=== PATIENT | male | born 1950 | race Caucasian/White ===

== ENCOUNTER → 2016-08-04 | Outpatient (CLI) | payer OTHER ==
[~2016-08-04] MED LIST: ADVIN10/60 INH; AMOX875T PO; ASPI1TAB83 PO; ATOR-24 PO; FINA5TAB4 PO; LOSA100T2 PO; MULT-506 PO; NAPR500T3 PO; OMEP40CA PO; TAMS0.4C38 PO; VNTHFA/IN INH; ZNTT/150 PO
[2016-08-04 12:46] LABS: BASO % 0.3 %; BASO ABS # 0.03 K/uL (0-0.2); COMPLETE YES; HEMATOCRIT 48.4 % (42-52); IG% 0.2 %; LYMPH % 9.9 %; LYMPH ABS # 1.08 K/uL (1.2-3.4); MEAN CELL VOLUME 86.9 fL (80-100); MEAN CORPUSCULAR HGB CONC 34.5 g/dl (32-36); MEAN PLATELET VOLUME 11.2 fL (7.4-10.4); NEUT % 79.6 %; PLATELET COUNT 231 K/uL (130-400); RED BLOOD COUNT 5.57 M/uL (4.7-6.1); WHITE BLOOD COUNT 10.86 K/uL (4.8-10.8)
[2016-08-04 15:07] LABS: ALT/SGPT 32 U/L (12-78); BLOOD UREA NITROGEN 19 mg/dl (7-18); BUN/CREATININE RATIO 17.6 (10-20); CARBON DIOXIDE 29 mmol/L (21-32); CHLORIDE 105 mmol/L (98-107); CHOLESTEROL 188 mg/dl (0-200); GLUCOSE 108 mg/dl (70-99); POTASSIUM 4.1 mmol/L (3.5-5.1); SODIUM 140 mmol/L (136-145); TRIGLYCERIDES 110 mg/dl (0-150); VERY LOW DENSITY LIPOPROT CALC 22 mg/dl
[2016-08-04 15:11] LABS: ALB/GLOB RATIO 1.3 (0.9-2); ALKALINE PHOSPHATASE 105 U/L (45-117); AST/SGOT 24 U/L (15-37); CHOLESTEROL/HDL RATIO 3.7; HDL CHOLESTEROL 51 mg/dl; LDL CHOLESTEROL CALCULATED 115 mg/dl; PROSTATE SPECIFIC ANTIGEN 0.633 ng/ml (0.000-4.000)
[2016-08-04 16:57] LABS: CALCIUM 9.6 mg/dl (8.5-10.1)
--- NOTE | 2016-08-10 11:41 | CODING QUERY MEDICAL NECESSITY ---
SUPPORTING DIAGNOSIS NEEDED A supporting diagnosis is required for the test/procedure performed on this patient in order for us to be reimbursed by the patient's insurance. Please provide a supporting diagnosis for the following test/procedure listed below next to the test name along with your signature. *If there is no additional diagnosis for this patient that would support the following test/procedure please document that below next to the test/procedure. Test(s)/Procedure(s) that require a supporting diagnosis: DOS 08/04 * PSA DIAGNOSIS: * Lipids DIAGNOSIS: Provider Signature: Date: Thank you Lana Koch Health Information Management Once completed, please kindly fax back to [phone] For questions please call [phone]
== END | disposition home or self-care (01) ==
LOC: C.LABPBG 08:30
PROVIDERS: ATTEND Internal Medicine
DX: R39.9 Unspecified symptoms and signs involving the genitourinary system (principal); Z11.59 Encounter for screening for other viral diseases; R68.82 Decreased libido; Z12.5 Encounter for screening for malignant neoplasm of prostate; I10 Essential (primary) hypertension

== ENCOUNTER → 2016-09-03 | Day surgery (SDC) | payer OTHER ==
[~2016-09-03] VITALS: Ht 180.3 cm; Wt 93.0 kg
[~2016-09-03] MED LIST changes: +FENTANYL CITRATE INJ 50 MCG/1 ML 2 ML VIAL ONE; +HEPARIN SOD (PORCINE) 1000 UNIT/ML 10 ML VIAL ONE; +MIDAZOLAM HCL 1 MG/ML 2ML VIAL ONE; +NITROGLYCERIN/D5W 100MCG/ML 20ML SYR ONE; +NiCARDipine HCL INJ 2.5 MG/ML 10 ML AMP ONE
[2016-09-03 10:00] VITALS: BP 139/72; PULSE 50; TEMP 36.7; O2SAT 98; Ht 180.3 cm; Wt 93.0 kg
--- NOTE | 2016-09-03 12:17 | Procedure Note ---
Pre-Mod Sedation Assessment General Date of Moderate Sedation: September 03, 2016. Vital Signs: Vital Signs Past 12 Hours Date Time Temp Pulse Resp B/P Pulse Ox O2 Delivery O2 Flow Rate FiO2 09/03/16 10:00 36.7 50 18 139/72 98 Room Air Review Cardiovascular: regular rate, rhythm, no edema Abdomen: normal bowel sounds, non tender Lungs: chest non-tender, lungs clear Airway Class: II Pre-Sedation Airway Assessment Oral Cavity: WNL Able to Visualize Vocal Cords: No Short Thick Neck: No Hx of Sleep Apnea: Yes Smoking Status: Former Smoker Mallampati Classification: Class II ASA Classification: Class II Procedure Planning Contraindications-for Mod Sed: None Yes Notes The planned sedation has been discussed with the patient and consent obtained. I have identified the patient, determined the appropriateness of sedation and have assessed the patient immediately prior to the procedure. All medicine(s) and interventions are by my order.
--- NOTE | 2016-09-03 12:18 | Procedure Note ---
Post-Mod Sedation Assessment General Date of Moderate Sedation September 03, 2016. Vital Signs: Vital Signs Past 12 Hours Date Time Temp Pulse Resp B/P Pulse Ox O2 Delivery O2 Flow Rate FiO2 09/03/16 10:00 36.7 50 18 139/72 98 Room Air Review - Discharge Criteria Vital Signs Stable: Yes Alert/Oriented/Conversant: Yes Returned to Baseline Mental St: Yes Nausea Absent/Minimal: Yes Pain/Discomfort/Absent/Minimal: Yes Normal/Baseline Respirations: Yes Active Bleeding?: No Pt Received D/C Instructions: N/A Prescriptions Given: None Specific Proced. D/C Criteria Distal Pulses Present (Cardiac: Yes Groin site assessed-Card Cath: N/A Voided Prior To Discharge: N/A Discharged Patients Adult Escort/Transportation: Yes
--- NOTE | 2016-09-03 12:32 | Cardiac Catheterization ---
Procedure Note Procedure Date September 03, 2016. Pre-Procedure Diagnosis Positive Stress Test AUC Score 7 Post-Procedure Diagnosis Normal Coronary Arteries Procedure(s) Performed Coronary Angiography, Left Heart Cath Lining Setter Dr. Krueger Booking Clerk(s) Geri Estimated Blood Loss 14 Medication(s) Fentanyl, Heparin, Nitroglycerin, Versed, Lidocaine 1% Summary of Findings Indication: Positive Stress test Access: 6Fr Right Radial Artery Slender (due to extreme subclavian tortuosity unable to perform procedure from right wrist --> converted to 6Fr Left Radial Artery Slender Catheters: Basile, JR4, JL3.5 Findings: LM - Luminal irregularities LAD - 30% stenosis in the mid segment at the take-off of 1st diagonal; distal luminal irregularities as wraps around apex. Ramus - Large caliber vessel, angiographically normal Circumflex - Tortuous, angiographically normal RCA - Non-dominant, tortuous, luminal irregularities LVEDP - 7 Arterial Closure: TR Bands Summary: 1. Mild nonobstructive coronary artery disease - 30% mid LAD stenosis 2. Normal intracardiac filling pressure Recommendations: Continued ASCVD risk factor modification including ASA, antihypertensives. Consider adding statin Dr. Alvarez to assess rate-responsiveness of pacemaker Follow-up with Dr. Serna Hemodynamics Rest Ao: 112/59/82 Final Ao: 106/56/76 LV: 106/7 Recommendations Medical therapy and/or Counseling Specimens None Radiation Exposure (mGy) 1889 Contrast (mls) Visipaque Anesthesia Moderate Procedural Complication(s) None Disposition Motel Front Desk Clerk Holding/Recovery ACC Data Cardiac Status Clinical evaluation leading to the procedure CAD Presntation: Positive Stress Test Anginal Classification: CCS II Heart Failure: No, NYHA Class: CCS I Cardiogenic Shock w/in 24Hrs: No Cardiac Arrest w/in 24Hrs: No Imaging studies past 6 months: Yes Stress studies past 6 months: Yes Standard Exercise Stress Test: No Stress Echocardiogram: Yes - Positive Stress Testing w/SPECT MPI: No Cardiac CTA: No Coronary Anatomy Dominant: Left LAD (% Stenosis): Mid (30) Diagnostic Physician's Name: Pepe Krueger MD Status: Elective Closure Device Percutaneous Entry Location: Radial Closure Device: Radial Band Recommendations: Medical therapy and/or Counseling Intraprocedure Events Significant Dissection: No Perforation: No
--- NOTE | 2016-09-03 13:31 | Discharge Instructions ---
Discharge Instructions Procedure Procedure Date: September 03, 2016. Reason for Visit: Abnormal Stress Echo *Dr Krueger Doing*. Discharge Discharge Date: September 03, 2016. Discharge Diagnosis: False positive stress test Last Recorded Wt (Kilograms): 93 Anesthesia Post Anesthesia Instructions: If you have had IV Sedation: * Do not drive today. * Can resume driving tomorrow. * Do not make important decisions or sign legal documents today. * Call surgeon for: 1. Temperature elevations greater than 101 degrees F. 2. Uncontrollable pain. 3. Excessive bleeding. 4. Persistent nausea and vomiting. 5. Medication intolerance (nausea, vomiting or rash). * For nausea and vomiting use only clear liquids such as: tea, soda, bouillon until nausea subsides, then gradually increase diet as tolerated. * If you have any concerns or questions, call your surgeon's office. If physician is unavailable and it is an emergency, call 911 or go to the nearest emergency room. Instructions Activity Recommendations: limitations as noted below Recommended Home Diet: resume previous diet Allergies: Coded Allergies: No Known Allergies (Unverified , 05/17/14) Follow Up Additional Instructions: ACTIVITY RECOMMENDATIONS: It is common to feel weak and fatigue for a few days. * Do not drive or operate any motorized equipment for the next day. * Limit stair usage (2 or 3 trips a day only) for the next 2 days. * Do not lift anything heavier than 10 pounds for the next three days. * Do not engage in vigorous exercise or any sports for the next five days. * You may shower the day after your procedure, but do not immerse the area for three days. Cleanse the site gently with soap and water. SPECIAL CARE INSTRUCTIONS: * You may replace the pressure dressing or band-aid the morning after the procedure. * After your procedure, it is normal to have a small bruise or small lump at the site. Examine your site daily for any change in the bruise or lump, redness, swelling, drainage or numbness. Notify your doctor if any change. BLEEDING: * If there is a small amount of bleeding at the site, lie down and apply firm pressure with a clean cloth for ten minutes. When the bleeding stops, lie quietly keeping the procedure limb straight for six hours. Notify your doctor as soon as possible. * If the bleeding does not stop after ten minutes or if there is a large amount of bleeding or spurting, call 911 immediately. Continue to lie down and hold firm pressure until help arrives. SKIN IRRITATION: * You may experience some redness and/or swelling in the area where radiation was administered. If any skin irritation occurs, please contact your family physician. FOLLOW UP VISIT: Keep any scheduled doctor appointments. Espinoza Rosenthal Recommendations: Call your doctor if: * Temperature above 101 degrees * Pain not relieved by pain medicine ordered * There is increased drainage or redness from any incision * You have any unanswered questions or concerns. Your Doctors Instructions noted above were prepared by provider Simone Krueger. Patient Signature Section: Patient Instructions Signature Page Primo Rose Patient (or Guardian) Signature/Date: I have read and understand the instructions given to me by my caregivers. Caregiver/RN/Doctor Signature/Date: The above-named patient and/or guardian has received patient instructions on this date. + Original Patient Signature Page (only) stays with chart. Please make copy for patient.
[2016-09-03 14:45] VITALS: BP 145/60; PULSE 55; O2SAT 96
--- NOTE | 2016-09-03 14:49 | Progress Note ---
Progress Note Date of Service September 03, 2016. Progress Note Pacer interrogated; at baseline no rate response programmed on, just VVI 50. Pacing 46% of the time in the atrium. Reprogrammed to VVIR 60 with nominal settings.
== END | disposition home or self-care (01) ==
LOC: C.CATH 09:33
PROVIDERS: ATTEND Internal Medicine Cardiovascular Disease
DX: R94.39 Abnormal result of other cardiovascular function study (principal); R07.9 Chest pain, unspecified; R06.09 Other forms of dyspnea; E78.5 Hyperlipidemia, unspecified; I10 Essential (primary) hypertension; J45.909 Unspecified asthma, uncomplicated; K21.9 Gastro-esophageal reflux disease without esophagitis; Z95.0 Presence of cardiac pacemaker; Z87.891 Personal history of nicotine dependence; Z79.82 Long term (current) use of aspirin

== ENCOUNTER → 2016-10-12 | Outpatient (CLI) | payer OTHER ==
[~2016-10-12] MED LIST changes: -AMOX875T PO; -FENTANYL CITRATE INJ 50 MCG/1 ML 2 ML VIAL ONE; -HEPARIN SOD (PORCINE) 1000 UNIT/ML 10 ML VIAL ONE; -MIDAZOLAM HCL 1 MG/ML 2ML VIAL ONE; -NAPR500T3 PO; -NITROGLYCERIN/D5W 100MCG/ML 20ML SYR ONE; -NiCARDipine HCL INJ 2.5 MG/ML 10 ML AMP ONE
--- NOTE | 2016-10-12 10:15 | DIAGNOSTIC IMAGING REPORT ---
TWO VIEW CHEST CLINICAL HISTORY: Asthma. FINDINGS: PA and lateral chest radiographs are correlated with chest CT dated 09/28/2014. A 2-lead cardiac pacemaker partially obscures the left mid chest. The heart is enlarged. The mediastinal contour is within normal limits and the pulmonary vasculature is noncongested. Nonspecific interstitial thickening is noted and there is mild elevation of the right hemidiaphragm. Minimal bibasilar atelectasis is observed. The lungs and pleural spaces are otherwise clear. There is no pneumothorax. The skeletal structures are osteopenic. The bony thorax appears intact. IMPRESSION: 1. Cardiomegaly and cardiac pacemaker. There is no radiographic evidence of congestive failure. 2. No airspace consolidation or pleural effusion is seen. Electronically signed by: Say Pak M.D. 10/12/2016 10:14 AM Dictated Date/Time: 10/12/2016 10:12 AM
== END | disposition home or self-care (01) ==
LOC: C.RAD1850 09:56
PROVIDERS: ATTEND Internal Medicine
DX: J45.909 Unspecified asthma, uncomplicated (principal); I51.7 Cardiomegaly; Z95.0 Presence of cardiac pacemaker

== ENCOUNTER → 2016-11-16 | Day surgery (SDC) | payer OTHER ==
[2016-11-12 08:22] VITALS: Ht 182.9 cm; Wt 90.9 kg
[~2016-11-16] VITALS: Ht 182.9 cm; Wt 90.9 kg
[~2016-11-16] MED LIST changes: +LIDOCAINE HCL 2% 2 ML VIAL (20MG/ML) ONE; +PROPOFOL IV EMULSION 10 MG/ML 20 ML VIAL IV ONE; +SODIUM CHLORIDE 0.9% 500ML 500 ML IV ONE
--- NOTE | 2016-11-16 11:45 | Endo History and Physical ---
History & Physical Date of Service: Nov 16, 2016. Chief Complaint: SCREENING FOR COLON CANCER Referring Physician: DR. YU WARNER History of Present Illness 66 yo CM who presents for screening colonoscopy. Past Surgical History Hx Cardiac Surgery: Yes (HEART CATH, NO STENTS) Hx Internal Defibrillator: No Hx Pacemaker: Yes ([employer]) Hx Abdominal Surgery: Yes (HERNIA REPAIR) Hx of Implantable Prosthesis: No Hx Post-Op Nausea and Vomiting: No Hx Cancer Surgery: No Hx Thoracic Surgery: No Hx Orthopedic: No Hx Urinary Tract Surgery: Yes (KIDNEY STONE REMOVAL) Family History Colon CA Social History Smoking Status: Former Smoker Hx Substance Use: No Hx Alcohol Use: No Allergies Coded Allergies: No Known Allergies (Verified , 11/16/16) Current Medications Reported Home Medications Medications Dose Route/Sig Max Daily Dose Days Date Category Dose Instructions Zantac (Ranitidine HCl) 150 Mg Tab 150 Mg PO QPM 11/12/16 Reported Lipitor (Atorvastatin Calcium) 40 Mg Tab 40 Mg PO QPM 11/12/16 Reported Advair Diskus 100/50 60 Dose (Fluticasone Prop/Salmeterol) 1 Ea Aerp 1 Puff INH BID 11/12/16 Reported Ventolin Hfa (Albuterol) 200 Puffs/50283 Mcg Aers 2-4 Puffs INH Q6H PRN 11/12/16 Reported Multivitamin (Multivitamins) Tab 1 Tab PO QPM 09/03/16 Reported Aspirin 81 Mg Tab 1 Tab PO QPM 09/03/16 Reported Flomax (Tamsulosin Hcl) 0.4 Mg Cap 0.4 Mg PO QPM 05/17/14 Reported Proscar (Finasteride) 5 Mg Tab 5 Mg PO QPM 05/17/14 Reported Hyzaar (Losartan Potassium & Hydrochlo) 1 Tab Tab 1 Tab PO QPM 05/17/14 Reported 50-12.5 mg Prilosec (Omeprazole) 40 Mg Capcr 40 Mg PO QPM 05/17/14 Reported Vital Signs Weight (Kilograms): 90.91 Height (Feet): 6 Height (Inches): 0 Date Time Temp Pulse Resp B/P (MAP) Pulse Ox O2 Delivery O2 Flow Rate FiO2 11/16/16 10:55 36.1 61 20 138/80 (99) 97 Room Air Physical Exam General Appearance: WD/WN, no apparent distress Respiratory/Chest: Auscultation: breath sounds normal Cardiovascular: Heart Auscultation: RRR Abdomen: Bowel Sounds: normal Inspection & Palpation: soft, non-distended, no tenderness, guarding & rebound Assessment and Plan Assessment: 66 yo CM who presents for screening colonoscopy. Plan: Proceed with colonoscopy.
--- NOTE | 2016-11-16 12:08 | GI REPORT ---
Procedure Date: 11/16/2016 11:26 AM Procedure: Colonoscopy Indications: Screening for colorectal malignant neoplasm Medicines: Monitored Anesthesia Care Complications: No immediate complications. Estimated Blood Loss: Estimated blood loss: none. Procedure: Pre-Anesthesia Assessment: - Prior to the procedure, a History and Physical was performed, and patient medications and allergies were reviewed. The patient's tolerance of previous anesthesia was also reviewed. The risks and benefits of the procedure and the sedation options and risks were discussed with the patient. All questions were answered, and informed consent was obtained. Prior Anticoagulants: The patient has taken aspirin, last dose was 1 day prior to procedure. ASA Grade Assessment: III - A patient with severe systemic disease. After reviewing the risks and benefits, the patient was deemed in satisfactory condition to undergo the procedure. After I obtained informed consent, the scope was passed under direct vision. Throughout the procedure, the patient's blood pressure, pulse, and oxygen saturations were monitored continuously. The scope was introduced through the anus and advanced to the terminal ileum. The colonoscopy was performed without difficulty. The patient tolerated the procedure well. The quality of the bowel preparation was good. The terminal ileum, the appendiceal orifice and the rectum were photographed. Findings: The terminal ileum contained a single (solitary) three mm ulcer. No bleeding was present. Biopsies were taken with a cold forceps for histology. A 3 mm polyp was found in the cecum. The polyp was sessile. The polyp was removed with a cold snare. Resection and retrieval were complete. Multiple small-mouthed diverticula were found in the sigmoid colon. Non-bleeding internal hemorrhoids were found during retroflexion. The hemorrhoids were small. Impression: - A single (solitary) ulcer in the terminal ileum. Biopsied. - One 3 mm polyp in the cecum, removed with a cold snare. Resected and retrieved. - Diverticulosis in the sigmoid colon. - Non-bleeding internal hemorrhoids. Recommendation: - Resume previous diet. - Continue present medications. - Repeat colonoscopy for surveillance based on pathology results. - Return to primary care physician as previously scheduled. Manav Enamorado DO 11/16/2016 12:08:13 PM This report has been signed electronically. Note Initiated On: 11/16/2016 11:26 AM I attest to the content of the Intraoperative Record and orders documented therein, exceptions below
--- NOTE | 2016-11-16 12:09 | Discharge Instructions ---
Endoscopy Patient Instructions Date / Procedure(s) Performed Nov 16, 2016. Colonoscopy Allergy Information Coded Allergies: No Known Allergies (Verified , 11/16/16) Discharge Date / Findings Nov 16, 2016. Terminal ileum ulcer s/p biopsy Cecal polyp Diverticulosis Internal hemorrhoids Medication Instructions Stopped Medication(s): ASPIRIN LAST DOSE 11/15/16 OK to resume all medications today as prescribed Reported Home Medications Medications Dose Route/Sig Max Daily Dose Days Date Category Dose Instructions Zantac (Ranitidine HCl) 150 Mg Tab 150 Mg PO QPM 11/12/16 Reported Lipitor (Atorvastatin Calcium) 40 Mg Tab 40 Mg PO QPM 11/12/16 Reported Advair Diskus 100/50 60 Dose (Fluticasone Prop/Salmeterol) 1 Ea Aerp 1 Puff INH BID 11/12/16 Reported Ventolin Hfa (Albuterol) 200 Puffs/03034 Mcg Aers 2-4 Puffs INH Q6H PRN 11/12/16 Reported Multivitamin (Multivitamins) Tab 1 Tab PO QPM 09/03/16 Reported Aspirin 81 Mg Tab 1 Tab PO QPM 09/03/16 Reported Flomax (Tamsulosin Hcl) 0.4 Mg Cap 0.4 Mg PO QPM 05/17/14 Reported Proscar (Finasteride) 5 Mg Tab 5 Mg PO QPM 05/17/14 Reported Hyzaar (Losartan Potassium & Hydrochlo) 1 Tab Tab 1 Tab PO QPM 05/17/14 Reported 50-12.5 mg Prilosec (Omeprazole) 40 Mg Capcr 40 Mg PO QPM 05/17/14 Reported Provider Instructions Activity Restrictions - No exercising or heavy lifting for 24 hours. - Do not drink alcohol the day of the procedure. - Do not drive a car or operate machinery until the day after the procedure. - Do not make any important decisions or sign important papers in 24 hours after the procedure. Following Day: - Return to full activity which may include returning to work/school. Diet Start your diet with liquids and light foods (jello, soup, juice, toast). Then eat your usual diet if not nauseated. Treatment For Common After Affects For mild abdominal pain, bloating, or excessive gas: - Rest - Eat lightly - Lie on right side Follow-Up Information Follow-up with DR. YU WARNER as scheduled Anesthesia Information What You Should Know You have had a procedure that required some medicine to reduce anxiety and discomfort. This treatment is called moderate sedation. After receiving the treatment, you may be sleepy, but you will be able to breathe on your own. The effects of the treatment may last for several hours. Follow these instructions along with Activity/Diet recommendations noted above: * Do NOT do anything where dizziness or clumsiness would be dangerous. * Rest quietly at home today, then you can be up and about tomorrow. * Have a responsible person stay with you the rest of today. * You may have had an I.V. today. If so, you may take the dressing off later today. Recommendations Call your doctor if: * Trouble breathing * Continuous vomiting for more than 24 hours * Temperature above 101 degrees * Severe abdominal pain or bloating * Pain not relieved by pain medicine ordered * There is increased drainage or redness from any incision * A large amount of rectal bleeding greater than 2-3 tablespoons. (If you had a polyp/s removed or have hemorrhoids, a small amount of blood - from the rectum is to be expected.) * You have any unanswered questions or concerns. IN THE EVENT OF A SERIOUS EMERGENCY, GO TO THE NEAREST EMERGENCY ROOM Your discharge instructions were prepared by provider Manav Enamorado. Patient Instructions Signature Page Primo Rose Patient (or Guardian) Signature/Date: I have read and understand the instructions given to me by my caregivers. Caregiver/RN/Doctor Signature/Date: The above-named patient and/or guardian has received patient instructions on this date. + Original Patient Signature Page (only) stays with chart. Please make copy for patient.
[2016-11-16 12:40] VITALS: BP 131/81; PULSE 60; O2SAT 96
--- NOTE | 2016-11-16 12:40 | Anesthesiology Progress Note ---
Anesthesia Post Op Note Date & Time Nov 16, 2016 at 12:40 Vital Signs Pain Intensity: 0 Vital Signs Past 12 Hours Date Time Temp Pulse Resp B/P (MAP) Pulse Ox O2 Delivery O2 Flow Rate FiO2 11/16/16 12:25 60 16 125/70 (88) 96 Room Air 11/16/16 12:10 60 14 105/55 (72) 97 Room Air 11/16/16 10:55 36.1 61 20 138/80 (99) 97 Room Air Notes Mental Status: alert / awake / arousable, participated in evaluation Pt Amnestic to Procedure: Yes Nausea / Vomiting: adequately controlled Pain: adequately controlled Airway Patency, RR, SpO2: stable & adequate BP & HR: stable & adequate Hydration State: stable & adequate Anesthetic Complications: no major complications apparent
== END | disposition home or self-care (01) ==
LOC: C.GI 10:38
PROVIDERS: ATTEND Internal Medicine
DX: Z12.11 Encounter for screening for malignant neoplasm of colon (principal); K63.3 Ulcer of intestine; D12.0 Benign neoplasm of cecum; K57.92 Diverticulitis of intestine, part unspecified, without perforation or abscess without bleeding; K64.8 Other hemorrhoids; Z80.0 Family history of malignant neoplasm of digestive organs; J45.909 Unspecified asthma, uncomplicated; G47.33 Obstructive sleep apnea (adult) (pediatric); I25.10 Atherosclerotic heart disease of native coronary artery without angina pectoris; I10 Essential (primary) hypertension; K21.9 Gastro-esophageal reflux disease without esophagitis; Z87.442 Personal history of urinary calculi; Z87.891 Personal history of nicotine dependence; Z79.82 Long term (current) use of aspirin; Z95.0 Presence of cardiac pacemaker

== ENCOUNTER → 2016-12-01 | Outpatient (CLI) | payer OTHER ==
[~2016-12-01] MED LIST changes: -LIDOCAINE HCL 2% 2 ML VIAL (20MG/ML) ONE; -PROPOFOL IV EMULSION 10 MG/ML 20 ML VIAL IV ONE; -SODIUM CHLORIDE 0.9% 500ML 500 ML IV ONE
== END | disposition home or self-care (01) ==
LOC: C.LABPBG 12:50
PROVIDERS: ATTEND Registered Nurse
DX: R14.0 Abdominal distension (gaseous) (principal); K50.00 Crohn's disease of small intestine without complications

== ENCOUNTER → 2017-11-10 | Outpatient (CLI) | payer OTHER ==
[~2017-11-10] MED LIST changes: +GLUCTAB7 PO; +OMEP40CA41 PO; +RANI150T85 PO; +VALS160T58 PO; -ZNTT/150 PO
== END | disposition home or self-care (01) ==
LOC: C.LABPBG 08:32
PROVIDERS: ATTEND Registered Nurse
DX: Z80.0 Family history of malignant neoplasm of digestive organs (principal)

== ENCOUNTER → 2017-11-16 | Outpatient (CLI) | payer OTHER ==
[~2017-11-16] MED LIST changes: +OPTIRAY 320 IV PRN
--- NOTE | 2017-11-16 16:57 | DIAGNOSTIC IMAGING REPORT ---
ABDOMINAL CT WITH AND WITHOUT INTRAVENOUS CONTRAST, PANCREATIC PROTOCOL HISTORY: ABDOMINAL BLOATING, FAMILY HX OF PANCREATIC CA TECHNIQUE: Multiaxial CT images of the abdomen were performed both before and after the intravenous administration of contrast to evaluate the pancreas. COMPARISON STUDY: Chest, abdomen, pelvis CT 11/17/2013. FINDINGS: The lung bases are clear. Pacemaker wires are noted. No suspicious lytic or blastic osseous lesions. Small sclerotic foci within the lumbar spine vertebral bodies likely represents bone islands. There is a 6 mm stone within the right kidney. Mild calcified plaque within the normal caliber abdominal aorta. There is again noted a beaded appearance to the dominant right renal artery. Punctate calcification within the pancreatic head. The pancreas enhances normally. The common bile duct and main pancreatic duct are normal in caliber. The liver, gallbladder, spleen, and adrenal glands are unremarkable. The kidneys enhance normally. No hydronephrosis. Mild bilateral perinephric edema which is likely chronic. The visualized loops of bowel show no wall thickening or obstruction. Colonic diverticulosis. No retroperitoneal lymphadenopathy. The main portal vein is patent. IMPRESSION: 1. A single punctate calcification within the head of the pancreas. This could be vascular or related to chronic pancreatitis. 2. Otherwise, the pancreas enhances normally. No pancreatic masses identified. 3. Right-sided nephrolithiasis. No hydronephrosis. 4. No significant change in the slightly beaded appearance to the dominant right renal artery. This can be seen in the setting of fibromuscular dysplasia. 5. Colonic diverticulosis. Electronically signed by: Huseyin Bass M.D. 11/16/2017 4:56 PM Dictated Date/Time: 11/16/2017 4:46 PM
== END | disposition home or self-care (01) ==
LOC: C.CTS 14:58
PROVIDERS: ATTEND Registered Nurse
DX: R14.0 Abdominal distension (gaseous) (principal); Z80.0 Family history of malignant neoplasm of digestive organs; R19.09 Other intra-abdominal and pelvic swelling, mass and lump

== ENCOUNTER → 2017-12-02 | Day surgery (SDC) | payer OTHER ==
[2017-11-16 08:34] VITALS: BMI 28.0
[~2017-12-02] VITALS: Ht 180.3 cm; Wt 93.2 kg
[~2017-12-02] MED LIST changes: +LIDOCAINE HCL 2% 2 ML VIAL (20MG/ML) ONE; -LOSA100T2 PO; -OMEP40CA PO; -OPTIRAY 320 IV PRN; +PROPOFOL IV EMULSION 10 MG/ML 20 ML VIAL ONE; +SODIUM CHLORIDE 0.9% 500ML 500 ML IV ONE
[2017-12-02 11:52] VITALS: Ht 180.3 cm; Wt 93.2 kg
--- NOTE | 2017-12-02 12:44 | Endo History and Physical ---
History & Physical Date of Service: Dec 02, 2017. Chief Complaint: ILEITIS Referring Physician: DR. YU WARNER History of Present Illness 67 yo CM who presents for colonoscopy secondary to ileitis. Past Surgical History Hx Cardiac Surgery: Yes (HEART CATH/NO STENTS) Hx Internal Defibrillator: No Hx Pacemaker: Yes ([employer] PACEMAKER) Hx Abdominal Surgery: Yes (HERNIA REPAIR X 2) Hx of Implantable Prosthesis: No Hx Post-Op Nausea and Vomiting: No Hx Cancer Surgery: No Hx Thoracic Surgery: No Hx Orthopedic: No Hx Urinary Tract Surgery: Yes (CYSTOSCOPY AND KIDNEY STONE REMOVAL) Family History None Social History Smoking Status: Former Smoker Hx Substance Use: No Hx Alcohol Use: No Allergies Coded Allergies: No Known Allergies (Verified , 12/02/17) Current Medications Reported Home Medications Medications Dose Route/Sig Max Daily Dose Days Date Category Glucosamine Chondroitin (Efhhfysvoho-Xuogpzkidvk-Ixh C-) 1 Tab Tab 1 Tab PO QAM 11/16/17 Reported Diovan Hct 160MG/12.5MG (HCTZ/Valsartan) 1 Tab Tab 1 Tab PO QAM 11/16/17 Reported Prilosec (Omeprazole) 40 Mg Cap 40 Mg PO QPM 11/16/17 Reported Zantac (Ranitidine HCl) 150 Mg Tab 150 Mg PO QPM 11/12/16 Reported Lipitor (Atorvastatin Calcium) 40 Mg Tab 40 Mg PO QPM 11/12/16 Reported Advair Diskus 100/50 60 Dose (Fluticasone Prop/Salmeterol) 1 Ea Aerp 1 Puff INH BID PRN 11/12/16 Reported Ventolin Hfa (Albuterol) 200 Puffs/67011 Mcg Aers 2-4 Puffs INH Q6H PRN 11/12/16 Reported Multivitamin (Multivitamins) Tab 1 Tab PO QPM 09/03/16 Reported Aspirin 81 Mg Tab 1 Tab PO QPM 09/03/16 Reported Flomax (Tamsulosin Hcl) 0.4 Mg Cap 0.4 Mg PO QPM 05/17/14 Reported Proscar (Finasteride) 5 Mg Tab 5 Mg PO QPM 05/17/14 Reported Vital Signs Weight (Kilograms): 93.18 Height (Feet): 5 Height (Inches): 11 Date Time Temp Pulse Resp B/P (MAP) Pulse Ox O2 Delivery O2 Flow Rate FiO2 12/02/17 12:24 36.7 60 20 123/70 (87) 96 Room Air Physical Exam General Appearance: WD/WN, no apparent distress Respiratory/Chest: Auscultation: breath sounds normal Cardiovascular: Heart Auscultation: RRR Abdomen: Bowel Sounds: normal Inspection & Palpation: soft, non-distended, no tenderness, guarding & rebound Assessment and Plan Assessment: 67 yo CM who presents for colonoscopy secondary to ileitis. Plan: Proceed with colonoscopy.
--- NOTE | 2017-12-02 13:24 | Discharge Instructions ---
Endoscopy Patient Instructions Date / Procedure(s) Performed Dec 02, 2017. Colonoscopy Allergy Information Coded Allergies: No Known Allergies (Verified , 12/02/17) Discharge Date / Findings Dec 02, 2017. Ileitis s/p biopsies Diverticulosis Internal hemorrhoids Medication Instructions OK to resume all medications today as prescribed Reported Home Medications Medications Dose Route/Sig Max Daily Dose Days Date Category Glucosamine Chondroitin (Euphkmuoels-Ekjstyeeotj-Ytd C-) 1 Tab Tab 1 Tab PO QAM 11/16/17 Reported Diovan Hct 160MG/12.5MG (HCTZ/Valsartan) 1 Tab Tab 1 Tab PO QAM 11/16/17 Reported Prilosec (Omeprazole) 40 Mg Cap 40 Mg PO QPM 11/16/17 Reported Zantac (Ranitidine HCl) 150 Mg Tab 150 Mg PO QPM 11/12/16 Reported Lipitor (Atorvastatin Calcium) 40 Mg Tab 40 Mg PO QPM 11/12/16 Reported Advair Diskus 100/50 60 Dose (Fluticasone Prop/Salmeterol) 1 Ea Aerp 1 Puff INH BID PRN 11/12/16 Reported Ventolin Hfa (Albuterol) 200 Puffs/22471 Mcg Aers 2-4 Puffs INH Q6H PRN 11/12/16 Reported Multivitamin (Multivitamins) Tab 1 Tab PO QPM 09/03/16 Reported Aspirin 81 Mg Tab 1 Tab PO QPM 09/03/16 Reported Flomax (Tamsulosin Hcl) 0.4 Mg Cap 0.4 Mg PO QPM 05/17/14 Reported Proscar (Finasteride) 5 Mg Tab 5 Mg PO QPM 05/17/14 Reported Provider Instructions Activity Restrictions - No exercising or heavy lifting for 24 hours. - Do not drink alcohol the day of the procedure. - Do not drive a car or operate machinery until the day after the procedure. - Do not make any important decisions or sign important papers in 24 hours after the procedure. Following Day: - Return to full activity which may include returning to work/school. Diet Start your diet with liquids and light foods (jello, soup, juice, toast). Then eat your usual diet if not nauseated. Treatment For Common After Affects For mild abdominal pain, bloating, or excessive gas: - Rest - Eat lightly - Lie on right side Follow-Up Information Follow-up with DR. YU WARNER as scheduled Anesthesia Information What You Should Know You have had a procedure that required some medicine to reduce anxiety and discomfort. This treatment is called moderate sedation. After receiving the treatment, you may be sleepy, but you will be able to breathe on your own. The effects of the treatment may last for several hours. Follow these instructions along with Activity/Diet recommendations noted above: * Do NOT do anything where dizziness or clumsiness would be dangerous. * Rest quietly at home today, then you can be up and about tomorrow. * Have a responsible person stay with you the rest of today. * You may have had an I.V. today. If so, you may take the dressing off later today. Recommendations Call your doctor if: * Trouble breathing * Continuous vomiting for more than 24 hours * Temperature above 101 degrees * Severe abdominal pain or bloating * Pain not relieved by pain medicine ordered * There is increased drainage or redness from any incision * A large amount of rectal bleeding greater than 2-3 tablespoons. (If you had a polyp/s removed or have hemorrhoids, a small amount of blood - from the rectum is to be expected.) * You have any unanswered questions or concerns. IN THE EVENT OF A SERIOUS EMERGENCY, GO TO THE NEAREST EMERGENCY ROOM Your discharge instructions were prepared by provider Manav Enamorado. Patient Instructions Signature Page Primo Rose Patient (or Guardian) Signature/Date: I have read and understand the instructions given to me by my caregivers. Caregiver/RN/Doctor Signature/Date: The above-named patient and/or guardian has received patient instructions on this date. + Original Patient Signature Page (only) stays with chart. Please make copy for patient.
--- NOTE | 2017-12-02 13:28 | Anesthesiology Progress Note ---
Anesthesia Post Op Note Date & Time Dec 02, 2017 at 13:27 Vital Signs Pain Intensity: 0 Vital Signs Past 12 Hours Date Time Temp Pulse Resp B/P (MAP) Pulse Ox O2 Delivery O2 Flow Rate FiO2 12/02/17 13:08 60 20 96/51 (66) 94 Room Air 12/02/17 12:24 36.7 60 20 123/70 (87) 96 Room Air Notes Mental Status: alert / awake / arousable, participated in evaluation Pt Amnestic to Procedure: Yes Nausea / Vomiting: adequately controlled Pain: adequately controlled Airway Patency, RR, SpO2: stable & adequate BP & HR: stable & adequate Hydration State: stable & adequate Anesthetic Complications: no major complications apparent
--- NOTE | 2017-12-02 13:31 | GI REPORT ---
Patient Name: Primo Rose Procedure Date: 12/02/2017 12:16 PM Date of : 1950 Admit Type: Outpatient Age: 67 Gender: Male Attending MD: Manav Enamorado DO Procedure: Colonoscopy Providers: Manav Enamorado DO Referring MD: Mathew Park Indications: Ileitis Medicines: Monitored Anesthesia Care Complications: No immediate complications. Estimated Blood Loss: Estimated blood loss: none. Procedure: Pre-Anesthesia Assessment: - Prior to the procedure, a History and Physical was performed, and patient medications and allergies were reviewed. The patient's tolerance of previous anesthesia was also reviewed. The risks and benefits of the procedure and the sedation options and risks were discussed with the patient. All questions were answered, and informed consent was obtained. Prior Anticoagulants: The patient has taken aspirin, last dose was 1 day prior to procedure. ASA Grade Assessment: III - A patient with severe systemic disease. After reviewing the risks and benefits, the patient was deemed in satisfactory condition to undergo the procedure. After I obtained informed consent, the scope was passed under direct vision. Throughout the procedure, the patient's blood pressure, pulse, and oxygen saturations were monitored continuously. The scope was introduced through the anus and advanced to the terminal ileum. The colonoscopy was performed without difficulty. The patient tolerated the procedure well. The quality of the bowel preparation was good. The ileocecal valve, appendiceal orifice, and rectum were photographed. Findings: The perianal and digital rectal examinations were normal. A localized area of mucosa in the terminal ileum was mildly erythematous. Biopsies were taken with a cold forceps for histology. Scattered small-mouthed diverticula were found in the entire colon. Non-bleeding internal hemorrhoids were found during retroflexion. The hemorrhoids were small. Impression: - Erythematous mucosa in the terminal ileum. Biopsied. - Diverticulosis in the entire examined colon. - Non-bleeding internal hemorrhoids. Recommendation: - Resume previous diet. - Continue present medications. - Repeat colonoscopy for surveillance based on pathology results. - Return to primary care physician as previously scheduled. Manav Enamorado DO 12/02/2017 1:30:53 PM This report has been signed electronically. Note Initiated On: 12/02/2017 12:16 PM Number of Addenda: 0 I attest to the content of the Intraoperative Record and orders documented therein, exceptions below {[id number]}
[2017-12-02 13:38] VITALS: BP 110/49; PULSE 60; O2SAT 93
== END | disposition home or self-care (01) ==
LOC: C.GI 11:40
PROVIDERS: ATTEND Internal Medicine
DX: K52.9 Noninfective gastroenteritis and colitis, unspecified (principal); K57.30 Diverticulosis of large intestine without perforation or abscess without bleeding; K64.8 Other hemorrhoids; G47.33 Obstructive sleep apnea (adult) (pediatric); J45.909 Unspecified asthma, uncomplicated; K21.9 Gastro-esophageal reflux disease without esophagitis; I10 Essential (primary) hypertension; I25.10 Atherosclerotic heart disease of native coronary artery without angina pectoris; N40.0 Benign prostatic hyperplasia without lower urinary tract symptoms; Z87.891 Personal history of nicotine dependence; Z79.899 Other long term (current) drug therapy; Z79.82 Long term (current) use of aspirin